=== PATIENT | female | born 1940 | race Caucasian/White ===

== ENCOUNTER → 2017-02-05 | Outpatient (CLI) | payer BC ==
[~2017-02-05] MED LIST: ATOR10TA82 PO; CALCTAB5 PO; CLB200 PO; GLUC10007 PO; LOSA50TA6 PO; SNG10 PO; ULT/50 PO; VERA240T20 PO; XRL10 PO
--- NOTE | 2017-02-06 08:28 | MAMMOGRAPHY REPORT ---
BILATERAL DIGITAL SCREENING MAMMOGRAM WITH CAD: 02/05/2017 CLINICAL HISTORY: Routine screening. Patient has no complaints. TECHNIQUE: Bilateral CC and MLO views were obtained. Current study was also evaluated with a Comput er Aided Detection (CAD) system. COMPARISON: Comparison is made to exams dated: 01/24/2016 mammogram - [facility], 10/14/2014 mammogram, 09/01/2013 mammogram, 09/07/2014 mammogram, 06/19/2012 mammogram, and 05/07/2011 [facility] BREAST COMPOSITION: There are scattered areas of fibroglandular density in both breasts. FINDINGS: Asymmetries in the lateral right breast, and left breast along the posterior nipple line o n the CC view appears similar on prior mammograms dating back to at least 09/01/2013, therefore like ly benign. No new suspicious mass, architectural distortion or cluster of microcalcifications is se en. IMPRESSION: ACR BI-RADS CATEGORY 1: NEGATIVE There is no mammographic evidence of malignancy. A 1 year screening mammogram is recommended. The p atient will receive written notification of the results. Approximately 10% of breast cancers are not detected with mammography. A negative mammographic repor t should not delay biopsy if a clinically suggestive mass is present. Lisa White M.D. ay/:02/05/2017 16:33:24 Orthopedic Brace Maker: Nora SOMMERS(Ruth)(Evelia), [facility] letter sent: Normal 1/2 BI-RADS Code: ACR BI-RADS Category 1: Negative
== END | disposition home or self-care (01) ==
LOC: C.MAMM 12:18
PROVIDERS: ATTEND Internal Medicine
DX: Z12.31 Encounter for screening mammogram for malignant neoplasm of breast (principal)

== ENCOUNTER → 2017-12-24 | Outpatient (CLI) | payer BC ==
[2017-12-24 13:05] LABS: BASO % 0.9 %; BASO ABS # 0.06 K/uL (0-0.2); EOS % 5.3 %; EOS ABS # 0.36 K/uL (0-0.5); IG# 0.01 K/uL (0.00-0.02); LYMPH % 46.5 %; LYMPH ABS # 3.16 K/uL (1.2-3.4); MEAN CELL VOLUME 90.3 fL (80-100); MEAN CORPUSCULAR HEMOGLOBIN 30.1 pg (25-34); MEAN CORPUSCULAR HGB CONC 33.3 g/dl (32-36); MEAN PLATELET VOLUME 8.8 fL (7.4-10.4); MONO % 11.3 %; MONO ABS # 0.77 K/uL (0.11-0.59); NEUT % 35.9 %; NEUT ABS # 2.44 K/uL (1.4-6.5); PLATELET COUNT 341 K/uL (130-400); RED CELL DISTRIBUTION WIDTH CV 13.2 % (11.5-14.5); RED CELL DISTRIBUTION WIDTH SD 43.3 fL (36.4-46.3)
[2017-12-24 13:30] LABS: BLOOD UREA NITROGEN 24 mg/dl (7-18); CREATININE 0.89 mg/dl (0.60-1.20); GLUCOSE 89 mg/dl (70-99)
[2017-12-24 13:31] LABS: ALBUMIN 3.5 gm/dl (3.4-5.0); ALT/SGPT 18 U/L (12-78); CARBON DIOXIDE 27 mmol/L (21-32); CHOLESTEROL 280 mg/dl (0-200); POTASSIUM 4.2 mmol/L (3.5-5.1); SODIUM 139 mmol/L (136-145)
[2017-12-24 13:40] LABS: ALKALINE PHOSPHATASE 61 U/L (45-117); AST/SGOT 20 U/L (15-37); LDL CHOLESTEROL CALCULATED 167 mg/dl; TOTAL PROTEIN 7.2 gm/dl (6.4-8.2); TRANSFERRIN 218 mg/dl (200-360)
== END | disposition home or self-care (01) ==
LOC: C.LABPBG 08:55
PROVIDERS: ATTEND Internal Medicine
DX: G25.81 Restless legs syndrome (principal); E78.5 Hyperlipidemia, unspecified

== ENCOUNTER → 2018-01-21 | Outpatient (CLI) | payer BC ==
--- NOTE | 2018-01-21 11:36 | DIAGNOSTIC IMAGING REPORT ---
CHEST 2 VIEWS ROUTINE CLINICAL HISTORY: R05 [id number] cough. Dyspnea. COMPARISON STUDY: 09/22/2013 FINDINGS: The bones soft tissues and hemidiaphragms are normal. The cardiomediastinal silhouette is normal. The lungs are clear. The pulmonary vasculature is normal. Moderate stable emphysematous change. IMPRESSION: Stable emphysematous change. No acute process. The above report was generated using voice recognition software. It may contain grammatical, syntax or spelling errors. Electronically signed by: Edy Rodriguez M.D. 01/21/2018 11:35 AM Dictated Date/Time: 01/21/2018 11:35 AM
== END | disposition home or self-care (01) ==
LOC: C.RAD1850 11:26
PROVIDERS: ATTEND Internal Medicine
DX: R05 Cough (principal)

== ENCOUNTER → 2018-05-05 | Outpatient (CLI) | payer BC | END | disposition home or self-care (01) | LOC: C.LABPBG 11:27 | PROVIDERS: ATTEND Nurse Practitioner | DX: R05 Cough (principal) ==

== ENCOUNTER 2021-07-24 08:32 | Inpatient (IN) ==
--- NOTE | 2021-07-24 08:44 | Emergency Department Note ---
Impression & Plan Atrial fibrillation with rapid ventricular response, Elevated troponin I level ED Provider Note NAME: MITESH BROWNING AGE: 81 SEX: F : 1940 ARRIVES VIA: Walk-In INFORMANT: Patient, ED PROVIDER(S): Ulises Alarcon MD Chief Complaint: Shortness of breath HPI: Patient does present with concern for shortness of breath which began early this morning. The patient does have a known history of COPD and bronchiectasis. The patient does wear percussion chest in the evening to help with coughing of sputum. The patient does follow in [place] with pulmonology. Locally she follows with doctor Huber The patient denies any leg swelling. The patient denies any prior history of A. fib. The patient denies any positional or exertional dyspnea. The patient is a non-smoker. No alcohol or tobacco use. The patient states that she does feel better compared to before. Patient did not take her morning meds. The patient has not followed with a patient scheduling coordinator and denies any chest pains. Patient denies abdominal pain. Patient is vaccinated for COVID-19 and did get her seasonal flu shot. ROS: See HPI for pertinent positives and negatives. A total of 10 systems were reviewed and otherwise negative. Past medical history: See below Surgical history: See below Social history: See below Physical Exam: GENERAL: NAD, wearing a mask, non-toxic. EYE EXAM: Normal conjunctiva. PERRL, no anisocoria and EOM's grossly intact w/o pain. NECK: Supple, no nuchal rigidity, no adenopathy, non-tender. No signs of m eningismus. LUNGS: Clear to auscultation. Normal chest wall mechanics. HEART: Irregularly irregular and tachycardic, no MRG. ABDOMEN: Abdomen soft, non-tender, normo-active bowel sounds, no masses, no rebound or guarding. BACK: No CVA TTP. SKIN: No rashes and no bruising. UPPER EXTREMITIES: Upper extremities are grossly normal. LOWER EXTREMITIES: Grossly normal, no edema. Negative Homans' sign bilaterally. NEURO EXAM: A&O x3, cranial nerves II-XII grossly intact, normal speech, moves all 4 extremities on command w/o issue. Differential diagnoses: Reactive airway disease, pneumonia, pneumothorax, COPD, CHF, infections, cardiac ischemia, pulmonary embolism, musculoskeletal, gastrointestinal, as well as other pathologies. Course: Patient was seen and evaluated the bedside. Full history physical exam was performed. EKG interpreted by me A. fib, rate of 123, normal QRS, normal axis, PVC noted. Imaging Studies: See Below Cardiac monitoring: An order was placed for continuous cardiac monitoring. The monitor shows a rate of 115 with tachycardic and irregularly irregular rhythm. MDM: Patient did present due to concern for shortness of breath. The patient does have new onset A. fib. Patient was given a dose of Cardizem. Patient did eventually cardiovert. Patient does have elevated troponin. Patient was heparinized. I did speak with the on-call hospitalist Dr. Linares and patient was admitted to the medicine service. Critical Care: I have personally spent 55 minutes of critical care time in direct management of this patient. This includes bedside care, interpretation of diagnostic studies, and testing, discussion with consultants, patient, and family members, and other require inpatient management activities. This 55 minutes is in excess of all separately billable procedures. Past Med/Surg History Medical History Acute suppur left otitis media w/o spontan rupture tympanic membrane Cardiomegaly COPD (chronic obstructive pulmonary disease) Fall HTN (hypertension) Hyperglycemia Hyperlipidemia Pulmonary emphysema Rib contusion Surgical History Hx of hysterectomy Hx of shoulder surgery Post-operative state (10/16/13) S/P total knee arthroplasty Family History Mother Diabetes Myocardial infarction Family/Other Heart disease Denies family history of Ovarian cancer Prostate cancer Breast cancer Colorectal cancer Social History Smoking Status: Never smoker Hx Alcohol Use: No Hx Substance Use: No Preferred Language: Kosovan Visual Impairment: No Limitations Hearing Ability: Normal Beliefs That Will Affect Care: None marital status: / Current Living Situation: Alone current occupational status: retired How many Children do You have: 5 How many Children do You have Comment: 2 girls 3 boys Feels Safe at Home: Yes Childhood Exposure to Second-Hand Smoke: No during the past year weight has: remained stable Dental Care, Regularly: Yes Physical Activity Frequency: 5-6 Times per Week Seatbelt Use: always Sunscreen Use: Yes Allergies Allergies Allergy/AdvReac Type Severity Reaction Status Date / Time clarithromycin AdvReac Mild DIARRHEA Verified 06/27/21 10:34 Home Meds Home Medications Medication Instructions Recorded Confirmed multivitamin 1 tab PO DAILY 07/11/18 07/24/21 prednisone 5 mg tablet 5 mg PO DAILY 07/24/21 07/24/21 tiotropium 2.5 mcg-olodaterol 2.5 2 puff INHALATION HS 07/24/21 07/24/21 mcg/actuation mist for inhalation (Stiolto Respimat) Previous Rx's Medication Instructions Recorded celecoxib 200 mg capsule 200 mg PO BID #180 cap 09/14/20 verapamil 240 mg tablet,extended 240 mg PO DAILY #90 tab 09/14/20 release losartan 25 mg tablet 25 mg PO DAILY #90 tab 09/21/20 montelukast 10 mg tablet 10 mg PO DAILY #90 tab 11/22/20 tramadol 50 mg tablet 50 mg PO HS PRN #30 tab 04/11/21 Results & Data (ED) Vital Signs Vital Signs - 24 hr 07/24/21 08:37 07/24/21 08:45 07/24/21 09:14 Temperature 36.5 C Temperature Source Temporal Artery Scan Pulse Rate 136 H Pulse Rate [Apical] 93 H Respiratory Rate 18 18 Respiratory Effort / Characteristics Non-Labored Spontaneous Non-Labored Respiratory Depth Normal Normal Respiratory Pattern Regular Regular Blood Pressure 143/80 H Blood Pressure [Right Arm] 97/66 L Blood Pressure Mean 101 Blood Pressure Mean [Right Arm] 76 Blood Pressure Position Sitting Blood Pressure Position [Right Arm] Sitting Pulse Oximetry 94 94 Oxygen Delivery Method Room Air Room Air Room Air Sepsis Recent Fever Within 48 Hours No Sepsis New/Unexplained Change in Mental Status N/A Sepsis Action Taken by Nursing No Action Required Pulse Oximetry Post Tiitration 95 Home Medications Current Medication List: was personally reviewed by me Laboratory Data Attestation: I reviewed the patient's lab results. Result diagrams: 07/24/21 08:47 07/24/21 08:47 Lab Results 07/24/21 07/24/21 07/24/21 Range/Units 08:47 08:47 08:47 WBC 12.32 H (4.8-10.8) K/uL RBC 5.01 (4.2-5.4) M/uL Hgb 15.1 (12.0-16.0) g/dL Hct 45.2 (37-47) % MCV 90.2 (80-100) fL MCH 30.1 (25-34) pg MCHC 33.4 (32-36) g/dL RDW Std Deviation 43.8 (36.4-46.3) fL RDW Coeff of Kina 13.6 (11.5-14.5) % Plt Count 229 (130-400) K/uL MPV 9.2 (7.4-10.4) fL Immature Gran % (Auto) 0.2 % Neut % (Auto) 49.4 % Lymph % (Auto) 36.7 % [place] % (Auto) 10.1 % Eos % (Auto) 3.1 % Baso % (Auto) 0.5 % Neut # (Auto) 6.09 (1.4-6.5) K/uL Lymph # (Auto) 4.52 H (1.2-3.4) K/uL [place] # (Auto) 1.24 H (0.11-0.59) K/uL Eos # (Auto) 0.38 (0-0.5) K/uL Baso # (Auto) 0.06 (0-0.2) K/uL Immature Gran # (Auto) 0.03 H (0.00-0.02) K/uL PT 10.3 (9.0-12.0) Seconds INR 1.0 (0.9-1.1) APTT 25.5 (21.0-31.0) Seconds PTT Ratio 1.0 Sodium 138 (136-145) mmol/L Potassium 3.4 L (3.5-5.1) mmol/L Chloride 106 (98-107) mmol/L Carbon Dioxide 24 (21-32) mmol/L Anion Gap 9.0 (3-11) BUN 20 H (7-18) mg/dl Creatinine 0.96 (0.6-1.2) mg/dl Est Cr Clr Drug Dosing 46.8 ml/min Est GFR ( Amer) 63.4 ml/min Est GFR (Non-Af Amer) 54.7 ml/min BUN/Creatinine Ratio 20.6 H (10-20) Glucose 123 H (70-99) mg/dl Calcium 9.2 (8.5-10.1) mg/dl Magnesium 2.0 (1.8-2.4) mg/dl Total Bilirubin 0.4 (0.2-1) mg/dl AST 21 (15-37) U/L ALT 22 (12-78) U/L Alkaline Phosphatase 64 (45-117) U/L Troponin I 0.337 H* (0-0.045) ng/ml Total Protein 7.7 (6.4-8.2) gm/dl Albumin 3.3 L (3.4-5.0) gm/dl Globulin 4.4 H (2.5-4.0) gm/dl Albumin/Globulin Ratio 0.8 L (0.9-2) COVID-19 Eval Order SARS-CoV-2 (PCR) (Negative) 07/24/21 07/24/21 Range/Units 08:55 08:55 WBC (4.8-10.8) K/uL RBC (4.2-5.4) M/uL Hgb (12.0-16.0) g/dL Hct (37-47) % MCV (80-100) fL MCH (25-34) pg MCHC (32-36) g/dL RDW Std Deviation (36.4-46.3) fL RDW Coeff of Kina (11.5-14.5) % Plt Count (130-400) K/uL MPV (7.4-10.4) fL Immature Gran % (Auto) % Neut % (Auto) % Lymph % (Auto) % [place] % (Auto) % Eos % (Auto) % Baso % (Auto) % Neut # (Auto) (1.4-6.5) K/uL Lymph # (Auto) (1.2-3.4) K/uL [place] # (Auto) (0.11-0.59) K/uL Eos # (Auto) (0-0.5) K/uL Baso # (Auto) (0-0.2) K/uL Immature Gran # (Auto) (0.00-0.02) K/uL PT (9.0-12.0) Seconds INR (0.9-1.1) APTT (21.0-31.0) Seconds PTT Ratio Sodium (136-145) mmol/L Potassium (3.5-5.1) mmol/L Chloride (98-107) mmol/L Carbon Dioxide (21-32) mmol/L Anion Gap (3-11) BUN (7-18) mg/dl Creatinine (0.6-1.2) mg/dl Est Cr Clr Drug Dosing ml/min Est GFR ( Amer) ml/min Est GFR (Non-Af Amer) ml/min BUN/Creatinine Ratio (10-20) Glucose (70-99) mg/dl Calcium (8.5-10.1) mg/dl Magnesium (1.8-2.4) mg/dl Total Bilirubin (0.2-1) mg/dl AST (15-37) U/L ALT (12-78) U/L Alkaline Phosphatase (45-117) U/L Troponin I (0-0.045) ng/ml Total Protein (6.4-8.2) gm/dl Albumin (3.4-5.0) gm/dl Globulin (2.5-4.0) gm/dl Albumin/Globulin Ratio (0.9-2) COVID-19 Eval Order Covid19 at [facility] SARS-CoV-2 (PCR) NEGATIVE (Negative) Administered Medications Heparin Sodium/Dextrose (Heparin Sodium/Dextrose) 25,000 units in 500 mls @ 0.02 mls/hr IV .Q24H CARY; Protocol Stop: 08/23/21 09:59 Last Admin: 07/24/21 10:15 Dose: 1,200 units/hr, 24 mls/hr Documented by: [id number] Cosigned by: [id number] Sodium Chloride (Nss) 500 mls @ 80 mls/hr IV .Q6H15M CARY Stop: 07/25/21 00:16 Last Admin: 07/24/21 12:54 Dose: 80 mls/hr Documented by: [id number] Potassium Chloride (Potassium Chloride Crtab 20 Meq Tabcr) 20 meq PO BID CARY Stop: 07/25/21 09:01 Last Admin: 07/24/21 12:54 Dose: 20 meq Documented by: [id number] Discontinued Medications Diltiazem HCl (Diltiazem Hcl 5 Mg/Ml 5 Ml Vial) 20 mg IV NOW STA Stop: 07/24/21 08:51 Last Admin: 07/24/21 09:08 Dose: 20 mg Documented by: [id number] Cosigned by: [id number] Heparin Sodium/Dextrose (Heparin Iv Adult Wt-Based Standard *No* Bolus Protocol) 1 ea IV ONE ONE; Protocol Stop: 07/24/21 09:38 Last Admin: 07/24/21 10:16 Dose: Not Given Documented by: [id number] Potassium Chloride (Potassium Chloride Crtab 20 Meq Tabcr) 20 meq PO NOW STA Stop: 07/24/21 10:01 Last Admin: 07/24/21 10:11 Dose: 20 meq Documented by: [id number] Imaging Data Radiologist's Impression: Chest X-Ray 07/24/21 08:50 XR chest 1V portable HISTORY: Dyspnea COMPARISON: Chest 07/11/2018. FINDINGS: No pneumothorax or no pleural effusions. The heart is top normal in size. The lungs are clear. Old, healed right-sided rib fractures are again noted. IMPRESSION: No acute process. ACT 112: Negative or not required by law. Electronically signed by: Darian Orr M.D. 07/24/2021 9:53 AM Discharge Plan Visit Data Chief Complaint: Shortness of Breath/Dyspnea Stated Complaint: CHEST PAIN,SOB ED Provider: Ulises Alarcon Discharge Problem: Atrial fibrillation with rapid ventricular response, Elevated troponin I level Patient Disposition: Admitted As Inpatient Discharge Instructions Interventions: ED Discharge Assessment Last Done: 07/24/21 13:03
[2021-07-24] MEDS ORDERED: dilTIAZem HCl 5 MG/ML 5 ML VIAL IV STA (08:50)
[2021-07-24 09:00] LABS: Basophils # (auto) 0.06 K/uL (0-0.2); Basophils % (auto) 0.5 %; Eosinophils # (auto) 0.38 K/uL (0-0.5); Eosinophils % (auto) 3.1 %; Hematocrit (blood only) 45.2 % (37-47); Hemoglobin 15.1 g/dL (12.0-16.0); Immature Granulocytes # (auto) 0.03 K/uL (0.00-0.02); Immature Granulocytes % (auto) 0.2 %; Lymphocytes # (auto) 4.52 K/uL (1.2-3.4); Lymphocytes % (auto) 36.7 %; Mean Corpuscular Hemoglobin 30.1 pg (25-34); Mean Corpuscular Hgb Conc 33.4 g/dL (32-36); Mean Corpuscular Volume 90.2 fL (80-100); Mean Platelet Volume 9.2 fL (7.4-10.4); Monocytes # (auto) 1.24 K/uL (0.11-0.59); Monocytes % (auto) 10.1 %; Neutrophils # (auto) 6.09 K/uL (1.4-6.5); Neutrophils % (auto) 49.4 %; Platelet Count 229 K/uL (130-400); RDW Coefficient of Variation 13.6 % (11.5-14.5); RDW Standard Deviation 43.8 fL (36.4-46.3); Red Blood Count 5.01 M/uL (4.2-5.4); White Blood Count 12.32 K/uL (4.8-10.8)
[2021-07-24 09:18] LABS: Albumin Level 3.3 gm/dl (3.4-5.0); BUN Creatinine Ratio 20.6 (10-20); Calcium 9.2 mg/dl (8.5-10.1); Creatinine Clr Calc Pharmacy 46.8 ml/min; Est GFR (African American) 63.4 ml/min; Est GFR (Non-African American) 54.7 ml/min; Potassium 3.4 mmol/L (3.5-5.1)
[2021-07-24 09:25] LABS: Albumin Globulin Ratio 0.8 (0.9-2); Bilirubin,Total 0.4 mg/dl (0.2-1); Globulin 4.4 gm/dl (2.5-4.0); Total Protein 7.7 gm/dl (6.4-8.2); Troponin I 0.337 ng/ml (0-0.045)
[2021-07-24] MEDS ORDERED: Heparin IV Adult Wt-Based Standard *NO* Bolus Protocol IV ONE (09:37)
--- NOTE | 2021-07-24 09:54 | XRay Report ---
XR chest 1V portable HISTORY: Dyspnea COMPARISON: Chest 07/11/2018. FINDINGS: No pneumothorax or no pleural effusions. The heart is top normal in size. The lungs are meghan ar. Old, healed right-sided rib fractures are again noted. IMPRESSION: No acute process. ACT 112: Negative or not required by law. Electronically signed by: Darian Orr M.D. 07/24/2021 9:53 AM
[2021-07-24 09:55] LABS: Partial Thromboplastin Time 25.5 Seconds (21.0-31.0); Prothrombin Time 10.3 Seconds (9.0-12.0)
--- NOTE | 2021-07-24 09:55 | History & Physical Report ---
Date of Service July 24, 2021 Assessment & Plan (1) Atrial fibrillation: Plan: Atrial fibrillation appears to be new onset at this time, rate controlled in the ER with diltiazem initiated on heparin intravenous infusion patient typically takes a calcium channel lin Patient had been outpatient Coumadin as per an office note on July 27, 2020 however June 2021 completed without her medication list Patient with thyroid axis checked July 05, 2021 found to be normal, otherwise electrolytes were also normal (2) Elevated troponin: Plan: Elevation of troponin likely demand ischemia not related to an acute coronary syndrome. However we will trend the troponin. Echocardiogram listed from 2018 showed preserved preserved ejection fraction and no regional wall motion abnormalities we will repeat echocardiogram at this time. (3) Bronchiectasis: Plan: Patient sees [facility] pulmonary medicine. Given the diagnosis of bronchiectasis. Chronic coughing has been improved with steroids and there was discussion for the patient to be on chronic steroid treatment in addition to a combined inhaled medication including ipratropium and beta agonist. These medications will be continued, also continue prednisone at 5 Stress dose coverage as needed. Continues on Singulair (4) Hyperglycemia: Plan: This is been sprinkled throughout hospital records however she is on any formal treatment for glucose intolerance (5) HTN (hypertension): Plan: Previously on verapamil and losartan. Will transition to beta-lin try to improve rate control since she is already been on a reasonably good dose of calcium channel lin. It to be determined if there is room for the losartan once the beta-lin starts History of Present Illness Primary Care Provider: Guicho Rivera MD pt presents with shortness of breath, does have a history of chronic bronchiectasis on dual inhalers and some prednisone, found to be in new onset afib rvr, given diltiazem in ER, typically is on verapamil. IN the ER she has a elevated troponin but does not have c/o chest pain or acute changes on ECG, in the ER converted after diltiazem bolus, will keep to trend troponin and check echo Allergies Allergy/AdvReac Type Severity Reaction Status Date / Time clarithromycin AdvReac Mild DIARRHEA Verified 06/27/21 10:34 Home Medications Medication Instructions Recorded Confirmed Type multivitamin 1 tab PO DAILY 07/11/18 07/24/21 History celecoxib 200 mg capsule 200 mg PO BID #180 cap 09/14/20 07/24/21 Rx verapamil 240 mg tablet,extended 240 mg PO DAILY #90 tab 09/14/20 07/24/21 Rx release losartan 25 mg tablet 25 mg PO DAILY #90 tab 09/21/20 07/24/21 Rx montelukast 10 mg tablet 10 mg PO DAILY #90 tab 11/22/20 07/24/21 Rx tramadol 50 mg tablet 50 mg PO HS PRN #30 tab 04/11/21 07/24/21 Rx prednisone 5 mg tablet 5 mg PO DAILY 07/24/21 07/24/21 History tiotropium 2.5 mcg-olodaterol 2.5 2 puff INHALATION HS 07/24/21 07/24/21 History mcg/actuation mist for inhalation (Stiolto Respimat) Past Med/Surg History Medical History Acute suppur left otitis media w/o spontan rupture tympanic membrane Cardiomegaly COPD (chronic obstructive pulmonary disease) Fall HTN (hypertension) Hyperglycemia Hyperlipidemia Pulmonary emphysema Rib contusion Surgical History Hx of hysterectomy Hx of shoulder surgery Post-operative state (10/16/13) S/P total knee arthroplasty Family History Mother Diabetes Myocardial infarction Family/Other Heart disease Denies family history of Ovarian cancer Prostate cancer Breast cancer Colorectal cancer Social History Smoking Status: Smoker, status unknown Hx Alcohol Use: No Hx Substance Use: No Preferred Language: Setswana Communication Ability: Effective Visual Impairment: No Limitations Hearing Ability: Normal Ditch Tender Required: No Beliefs That Will Affect Care: None marital status: / Current Living Situation: Alone current occupational status: retired How many Children do You have: 5 How many Children do You have Comment: 2 girls 3 boys Other Information That Helps Us Care for You: No Feels Safe at Home: Yes Safety Concerns: Feels Safe At This Time Childhood Exposure to Second-Hand Smoke: No during the past year weight has: remained stable Dental Care, Regularly: Yes Physical Activity Frequency: 5-6 Times per Week Seatbelt Use: always Sunscreen Use: Yes Assistive Devices: None Review of Systems Review of Systems: Mild distress and fatigue no headache, no visual changes no speech or swallowing issues no chest pain, pressure or palpitations no shortness of breath, cough or wheezes no abdominal pain, nausea or vomiting, diarrhea or constipation no dysuria, hematuria or frequency no focal joint pain or swelling no back pain, CVA tenderness or radicular pain no bruising, bleeding or rashes no focal signs of weakness or numbness or altered sensation no complaints of anxiety or depression.. Physical Exam Physical Exam: The patient appeared well nourished and normally developed. Vital signs as documented. Head exam is normocephalic atraumatic Neck is without JVD, thyromegaly, or carotid bruits. Lungs are clear to auscultation, no focal loss of breath sounds Cardiac exam, Rhythm is regular.. kobi Abdominal exam reveals normal bowel sounds, soft non tender, no masses Extremities are nonedematous and both pedal pulses are present Neurologic exam is alert and oriented, no focal loss of strength or sensation Skin is without bruises or rashes Psychologically is without concerns for anxiety or depression Results & Data Results & Data ([facility]) Vital Signs (Past 12 Hours) Vital Signs Temp Pulse Pulse Resp BP BP Pulse Ox 07/24/21 09:14 93 H 18 97/66 L 94 07/24/21 08:37 97.7 F 136 H 18 143/80 H 94 Diagnostic Findings Personally visualized chest x-ray does not show an acute changes of pneumonia ECG Additional Comments: EKG shows atrial fibrillation rapid ventricular response rate in the 120s no acute ST or T wave changes PG Care Time/CCT Total # of Minutes Spent Total Time Spent with Patient: Total time spent is greater than 50% in coordination of care (as documented) at patient's floor/unit and/or counseling patient: Coding Level of Care Code 05986 Initial Inpt Care Lvl 2 Diagnoses Bronchiectasis J47.9 Hyperglycemia R73.9 Atrial fibrillation I48.91 Elevated troponin R77.8 HTN (hypertension) I10
[2021-07-24] MEDS ORDERED: METOPROLOL TARTRATE 1 MG/ML VIAL IV PRN (09:58)
[2021-07-24] MEDS ORDERED: HEPARIN SODIUM/DEXTROSE 25,000 UNITS/500 ML BAG IV SCH (10:00)
[2021-07-24] MEDS ORDERED: POTASSIUM CHLORIDE CRTAB 20 MEQ TABCR PO STA (10:00)
[2021-07-24] MEDS ORDERED: ALUMINUM/MAGNESIUM SUSP 30 ML UDC PO PRN (11:47)
[2021-07-24] MEDS ORDERED: ONDANSETRON INJ 2 MG/ML 2 ML VIAL IV PRN (11:47)
[2021-07-24] MEDS ORDERED: traMADol HCL 50 MG TABLET PO PRN (11:47)
[2021-07-24] MEDS ORDERED: ACETAMINOPHEN 325 MG TAB PO PRN (11:47)
[2021-07-24] MEDS ORDERED: NITROGLYCERIN SL 0.4 MG/TAB TAB SL PRN (11:47)
[2021-07-24] MEDS ORDERED: METOPROLOL TARTRATE 25 MG TAB PO ONE (11:47)
[2021-07-24] MEDS ORDERED: Nursing to Pharmacy Communication SCH (12:15)
[2021-07-24] MEDS: SODIUM CHLORIDE 0.9% 500 ML IV SCH ×2 (12:54→18:27)
[2021-07-24] MEDS: POTASSIUM CHLORIDE CRTAB 20 MEQ TABCR PO SCH ×2 (12:54→20:15)
--- NOTE | 2021-07-24 16:04 | XCELERA ---
[id number]
[2021-07-24 16:18] LABS: Partial Thromboplastin Ratio 2.6
[2021-07-24 16:26] LABS: Partial Thromboplastin Time 67.4 Seconds (21.0-31.0)
[2021-07-24] MEDS: UMECLIDINIUM/VILANTEROL 62.5/25MCG 7 PUFFS/INHALER INH SCH ×2 (20:16→20:49)
[2021-07-24] MEDS: METOPROLOL TARTRATE 25 MG TAB PO SCH (20:49)
[2021-07-24 22:37] LABS: Partial Thromboplastin Ratio 3.4
[2021-07-24 22:59] LABS: Partial Thromboplastin Time 89.3 Seconds (21.0-31.0)
[2021-07-25 05:32] LABS: Partial Thromboplastin Ratio 2.9
[2021-07-25 05:36] LABS: Hematocrit (blood only) 41.4 % (37-47); Hemoglobin 13.7 g/dL (12.0-16.0); Mean Corpuscular Hemoglobin 29.8 pg (25-34); Mean Corpuscular Hgb Conc 33.1 g/dL (32-36); Mean Platelet Volume 9.1 fL (7.4-10.4); Platelet Count 241 K/uL (130-400); RDW Coefficient of Variation 13.9 % (11.5-14.5); RDW Standard Deviation 45.1 fL (36.4-46.3); White Blood Count 9.99 K/uL (4.8-10.8)
[2021-07-25 05:49] LABS: BUN Creatinine Ratio 17.6 (10-20); Calcium 8.9 mg/dl (8.5-10.1); Creatinine Clr Calc Pharmacy 48.3 ml/min; Est GFR (African American) 65.9 ml/min; Est GFR (Non-African American) 56.8 ml/min; Magnesium 2.4 mg/dl (1.8-2.4); Potassium 4.5 mmol/L (3.5-5.1)
[2021-07-25 06:00] LABS: Partial Thromboplastin Time 76.3 Seconds (21.0-31.0)
--- NOTE | 2021-07-25 07:01 | Hospitalist Progress Note ---
Date of Service July 25, 2021 Assessment & Plan (1) Atrial fibrillation: Plan: Atrial fibrillation appears to be new onset at this time, rate controlled in the ER with diltiazem initiated on heparin intravenous infusion patient typically takes a calcium channel lin Patient had been outpatient Coumadin as per an office note on July 27, 2020 however June 2021 completed without her medication list Patient with thyroid axis checked July 05, 2021 found to be normal, otherwise electrolytes were also normal (2) Elevated troponin: Plan: Elevation of troponin likely demand ischemia not related to an acute coronary syndrome. However we will trend the troponin. Echocardiogram listed from 2019 showed preserved preserved ejection fraction and no regional wall motion abnormalities we will repeat echocardiogram at this time. (3) Bronchiectasis: Plan: Patient sees [facility] pulmonary medicine. Given the diagnosis of bronchiectasis. Chronic coughing has been improved with steroids and there was discussion for the patient to be on chronic steroid treatment in addition to a combined inhaled medication including ipratropium and beta agonist. These medications will be continued, also continue prednisone at 5 Stress dose coverage as needed. Continues on Singulair (4) Hyperglycemia: Plan: This is been sprinkled throughout hospital records however she is on any formal treatment for glucose intolerance (5) HTN (hypertension): Plan: Previously on verapamil and losartan. Will transition to beta-lin try to improve rate control since she is already been on a reasonably good dose of calcium channel lin. It to be determined if there is room for the losartan once the beta-lin starts Admission and Anticipated Discharge Date Admission Date: July 24, 2021 Results & Data Results & Data ([facility]) Vital Signs (Past 12 Hours) Vital Signs Temp Pulse Resp BP Pulse Ox 07/25/21 04:00 98.2 F 72 20 145/98 H 98 07/25/21 00:00 98.1 F 78 17 139/83 97 07/24/21 20:00 98.1 F 94 H 24 127/93 96 PG Care Time/CCT Total # of Minutes Spent Total Time Spent with Patient: Total time spent is greater than 50% in coordination of care (as documented) at patient's floor/unit and/or counseling patient: Coding Diagnoses Atrial fibrillation I48.91 Elevated troponin R77.8 Bronchiectasis J47.9 Hyperglycemia R73.9 HTN (hypertension) I10
[2021-07-25] MEDS ORDERED: FUROSEMIDE 20 MG in SYRINGE 0 ML IV ONE (07:15)
[2021-07-25] MEDS: POTASSIUM CHLORIDE CRTAB 20 MEQ TABCR PO SCH (08:19)
[2021-07-25] MEDS: METOPROLOL TARTRATE 25 MG TAB PO SCH (08:19)
[2021-07-25] MEDS ORDERED: predniSONE 5 MG TAB PO SCH (09:00)
[2021-07-25] MEDS ORDERED: MONTELUKAST SODIUM 10 MG TABLET PO SCH (09:00)
[2021-07-25] MEDS ORDERED: LOSARTAN POTASSIUM 25 MG TAB PO SCH (09:00)
[2021-07-25] MEDS ORDERED: ASPIRIN 81 MG ECTAB PO SCH (09:00)
[2021-07-25] MEDS ORDERED: MULTIVITAMIN TAB PO SCH (09:00)
[2021-07-25] MEDS ORDERED: APIXABAN 5 MG TABLET PO SCH ×2 (09:45→15:30)
--- NOTE | 2021-07-25 12:03 | Electrocardiogram Report ---
Test Reason : Blood Pressure : / mmHG Vent. Rate : 123 BPM Atrial Rate : 192 BPM P-R Int : 000 ms QRS Dur : 074 ms QT Int : 312 ms P-R-T Axes : 000 -14 024 degrees QTc Int : 446 ms Atrial fibrillation with rapid ventricular response with pvcs Inferior infarct (cited on or before 23-SEP-2009) Anterior infarct (cited on or before 23-SEP-2009) Abnormal ECG When compared with ECG of 11-JUL-2018 07:42, Atrial fibrillation has replaced Sinus rhythm Nonspecific T wave abnormality has replaced inverted T waves in Inferior leads Confirmed by Louie Loya ([id number]) on 07/25/2021 12:02:56 PM Referred By: SELF Confirmed By:Louie Loya
[2021-07-25 12:09] LABS: Partial Thromboplastin Ratio 1.3; Partial Thromboplastin Time 35.4 Seconds (21.0-31.0)
--- NOTE | 2021-07-25 12:21 | Electrocardiogram Report ---
Test Reason : Blood Pressure : / mmHG Vent. Rate : 097 BPM Atrial Rate : 097 BPM P-R Int : 176 ms QRS Dur : 076 ms QT Int : 362 ms P-R-T Axes : 039 -10 -02 degrees QTc Int : 459 ms Normal sinus rhythm Inferior infarct (cited on or before 23-SEP-2009) Anterior infarct (cited on or before 23-SEP-2009) Abnormal ECG When compared with ECG of 24-JUL-2021 08:41, (unconfirmed) Sinus rhythm has replaced Atrial fibrillation Inverted T waves have replaced nonspecific T wave abnormality in Inferior leads Confirmed by Louie Loya ([id number]) on 07/25/2021 12:21:30 PM Referred By: REFERRED SELF Confirmed By:Louie Loya
[2021-07-25] MEDS ORDERED: Nursing to Pharmacy Communication SCH (15:00)
[2021-07-25] MEDS ORDERED: METOPROLOL TARTRATE 25 MG TAB PO SCH (15:30)
--- NOTE | 2021-07-25 19:17 | Discharge Summary ---
Date of Service July 25, 2021 Admission HPI Per Admitting Provider pt presents with shortness of breath, does have a history of chronic bronchiectasis on dual inhalers and some prednisone, found to be in new onset afib rvr, given diltiazem in ER, typically is on verapamil. IN the ER she has a elevated troponin but does not have c/o chest pain or acute changes on ECG, in the ER converted after diltiazem bolus, will keep to trend troponin and check echo Principal Diagnosis Atrial fibrillation conversion to normal sinus rhythm Elevated right heart pressures Discharge Exam The patient appeared well Vital signs as documented. Lungs are clear to auscultation and appear unlabored Cardiac exam, Rhythm is regular.. No murmurs, rubs or gallops. Abdominal exam reveals normal bowel sounds, soft non tender, no masses Extremities are nonedematous and both pedal pulses are normal. Neurologic exam is alert and oriented, no focal loss of strength or sensation Skin is without bruises or rashes Psychologically is without concerns for anxiety or depression. Discharge Data Allergies Allergy/AdvReac Type Severity Reaction Status Date / Time clarithromycin AdvReac Mild DIARRHEA Verified 06/27/21 10:34 Consultations 07/24/21 09:39 ED Decision to Admit Stat Hospital Course (1) Atrial fibrillation: Atrial fibrillation appears to be new onset at this time, rate controlled in the ER with diltiazem initiated on heparin intravenous infusion patient typically takes a calcium channel lin Patient had been outpatient Coumadin as per an office note on July 27, 2020 however June 2021 completed without her medication list Patient with thyroid axis checked July 05, 2021 found to be normal, otherwise electrolytes were also normal Patient converted to sinus rhythm while in the ER. Patient typically is on verapamil. We chose metoprolol. Patient be anticoagulated with Eliquis at least for 30 days. Outpatient provider may choose to employee multiple day event monitor before ceasing anticoagulation. Her blood pressure and heart rate seem controlled on the metoprolol dose here in the hospital. (2) Elevated troponin: Elevation of troponin likely demand ischemia not related to an acute coronary syndrome. Troponin trended not significantly changed.. Echocardiogram showed preserved ejection fraction elevated right heart pressures with dilated right ventricle. She was given 1 dose of Lasix in hospital as she was volume resuscitated on presentation to the ER. I asked if she had any sleep apnea which may predispose her to pulmonary hypertension she states she is not sure. Family did describe a history rheumatic fever as a child there is no significant valvular abnormalities noted (3) Bronchiectasis: Patient sees [facility] pulmonary medicine. Given the diagnosis of bronchiectasis. Chronic coughing has been improved with steroids and there was discussion for the patient to be on chronic steroid treatment in addition to a combined inhaled medication including ipratropium and beta agonist. These medications will be continued, also continue prednisone at 5 Stress dose coverage as needed. Continues on Singulair (4) Hyperglycemia: This is been sprinkled throughout hospital records however she is on any formal treatment for glucose intolerance (5) HTN (hypertension): Previously on verapamil and losartan. Will transition to beta-lin try to improve rate control since she is already been on a reasonably good dose of calcium channel lin. Total Time Total Time Spent Total Time Spent (In Minutes): It required greater than 30 minutes to prepare this patient for discharge Discharge Plan Discharge Items Patient Disposition: Home - Self-Care Reason For Visit: AFIB RVR, ELEVATED TROPONIN Discharge Diagnosis: atrial fibrillation paroxysmal elevated troponin elevated right heart pressures Activity: Resume your previous activity Non-emergency contact: Primary Care Provider Call non-emergency contact if: you have any medication questions and your symptoms worsen Follow-up/Referrals: Guicho Rivera MD [Primary Care Provider] - 07/31/21 11:20 am Diet: Regular Addtl Attending Provider Instructions: you did have a period of rapid irregular heart beat, this converted back to normal rhythm. you will be Rx a blood thinner and did have one of your blood pressure medicines changed to help with the irregular heart beat and hopefully prevent it from coming back. on your heart ultrasound, everything looks strong, no valve issues, but there is some increase in the pressure on the right side of your heart. Dr Huber may consider additional testing or medicines for this problem Please eat a low salt diet at home Pending Studies at Discharge: No Stand-Alone Forms: My [employer], Smoking Cessation Medications and DC Order Prescriptions: New aspirin 81 mg Tablet,Delayed Release (Dr/Ec) 81 mg PO QAM Qty: 90 RF: 0 metoprolol tartrate 25 mg Tablet 25 mg PO BID Qty: 60 RF: 0 Eliquis 5 mg Tablet 5 mg PO BID Qty: 60 RF: 0 Continued celecoxib 200 mg capsule 200 mg PO BID Qty: 180 RF: 3 losartan 25 mg tablet 25 mg PO DAILY Qty: 90 RF: 3 montelukast 10 mg tablet 10 mg PO DAILY Qty: 90 RF: 3 tramadol 50 mg tablet 50 mg PO HS PRN (Reason: Pain) Qty: 30 RF: 5 multivitamin Tablet 1 tab PO DAILY RF: 0 prednisone 5 mg tablet 5 mg PO DAILY RF: 0 Stiolto Respimat 2.5-2.5 mcg/actuation mist 2 puff INHALATION HS RF: 0 Discontinued verapamil 240 mg tablet extended release 240 mg PO DAILY Qty: 90 RF: 3 Discharge Orders: Discharge Order (Routine); Ordered 07/25/21 Ordered By: Sergio Park/Other Patient Handouts: ED Atrial Fibrillation Admission Data Admit Date/Time: 07/24/21 10:04 Attending Provider: Sergio Linares Admit Provider: Sergio Linares Primary Care Provider: Guicho Rivera V. Other Providers: Sergio Linares Other Interventions: Discharge Summary Assessment (RN) Last Done: 07/25/21 14:21 Coding Level of Care Code D/C DAY MANAGEMENT >30 MINS Diagnoses Atrial fibrillation I48.91 Elevated troponin R77.8 Bronchiectasis J47.9 Hyperglycemia R73.9 HTN (hypertension) I10
--- NOTE | 2021-07-26 12:07 | Electrocardiogram Report ---
Test Reason : Blood Pressure : / mmHG Vent. 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
== END 2021-07-25 15:53 | disposition home or self-care (01) | DRG 309 ==
LOC: ED 08:32 → EDINP 10:04 → 1E 13:03